=== PATIENT | male | born 1970 | race Caucasian/White ===

== ENCOUNTER 2019-08-19 00:24 | Day surgery (SDC) | payer OTHER, SELFPAY ==
[2019-08-04 11:03] VITALS: BMI 35.6
[2019-08-19 06:22] VITALS: BP 150/89; PULSE 79; RESP 20; TEMP 36.7; O2SAT 98
[2019-08-19] MEDS: LACTATED RINGERS 1,000 ML 30 ML IV CONT (06:55)
--- NOTE | 2019-08-19 07:04 | WPDANESEPPF ---
Anes - Initial Pre Proc Eval Procedure: Operation Date: 08/19/19 07:30 Proposed Procedures p Biopsy Lesion of Maxilla - Chavez Barajas DMD Date/Time: 08/19/19 07:04 Surgeon: Chavez Barajas DMD Pre Op Diagnosis: Lesion of maxilla Patient Data Age: 49 Gender: M Height: 6 ft 1 in Weight: 122.47 kg Allergies Allergy/AdvReac Type Severity Reaction Status Date / Time No Known Allergies Allergy Mild Unverified 08/19/19 06:26 Home Medications Medication Instructions Recorded Confirmed Type Ageless Male 1 tablet PO DAILY 08/04/19 History amlodipine 5 mg PO DAILY 08/04/19 08/19/19 History hydrocodone-acetaminophen 1 tablet PO TID PRN 08/04/19 08/19/19 History losartan 100 mg PO DAILY 08/04/19 08/19/19 History methylphenidate HCl 10 mg PO BID 08/04/19 08/19/19 History multivitamin 1 tablet PO DAILY 08/04/19 08/19/19 History chlorzoxazone 500 mg TID 08/19/19 08/19/19 History Patient hx anesthesia problems: none Family hx anesthesia problems: none PMFSH Past Medical History Medical History Chronic pain syndrome Hypertension Smoker Tobacco abuse Anes - Eval Final PreProcedure Day of Procedure 08/19/19 07:04 Patient weight: obese Heart: regular rate and rhythm Lungs: decreased breath sounds Airway: Mallampati scale class II Neurological: alert and oriented Last oral intake: >/= 8 hours ASA classification: III Emergent: no Anesthetic plan: proceed Anesthesia type and monitoring: general ETT and standard monitoring Informed Consent: The patient's anesthetic plan and its attendant risks and benefits were discussed with the patient/family/POA. Questions were solicited and answers provided to the satisfaction of the patient/family/POA.
--- NOTE | 2019-08-19 07:20 | PM.IMHP ---
H&P: HPI History of Present Illness Chief complaint: Lesion of maxilla Narrative: Tony Manjarrez Sr. is a 49 year old male presents for removal of teeth and biopsy maxilla PMFSH Past Medical History Medical History Chronic pain syndrome Hypertension Smoker Tobacco abuse Meds Home Medications and Allergies Home Medications Medication Instructions Recorded Confirmed Type Ageless Male 1 tablet PO DAILY 08/04/19 History amlodipine 5 mg PO DAILY 08/04/19 08/19/19 History hydrocodone-acetaminophen 1 tablet PO TID PRN 08/04/19 08/19/19 History losartan 100 mg PO DAILY 08/04/19 08/19/19 History methylphenidate HCl 10 mg PO BID 08/04/19 08/19/19 History multivitamin 1 tablet PO DAILY 08/04/19 08/19/19 History chlorzoxazone 500 mg TID 08/19/19 08/19/19 History Allergies Allergy/AdvReac Type Severity Reaction Status Date / Time No Known Allergies Allergy Mild Unverified 08/19/19 06:26 Assessment and Plan Additional Plan removal of #8-10 and biopsy maxilla
[2019-08-19] MEDS: OXYMETAZOLINE HCL 0.05% NAS 15 ML BTL (*BKC) 1 SPRAY NASAL (07:45)
[2019-08-19] MEDS: LIDOCAINE 2%-EPI (FOR DENTAL BLOCK) 1.7 ML CARTRIDGE INFILTRATE (07:46)
[2019-08-19 08:13] VITALS: BP 137/89; PULSE 91; RESP 12; TEMP 36.2; O2SAT 95
[2019-08-19 08:25] VITALS: BP 150/99; PULSE 80; RESP 16; O2SAT 99
--- NOTE | 2019-08-19 08:28 | PM.PROC ---
Procedure Note - Detailed Date of procedure: 08/19/19 Pre-op diagnosis: Lesion of maxilla Post-op diagnosis: same Procedure performed: removal #8,9,10 and enucleation of lesion maxilla Description of procedure: Patient was encountered in the operating room under care of the Anesthesia Service to induced a general anesthetic. Oral cavity was suctioned free of debris and throat pack was placed. Patient was draped in the usual manner for an intraoral surgical procedure. Local anesthetic was administered. A 15 blade was used to make a circular incision in the anterior maxilla with a distal releasing incision in the area of tooth 12. Full-thickness flap was elevated to the buccal. Teeth numbers 8 9 and 10 were found to be involved in the lesion and tooth 8. Was fractured. These teeth were removed using elevator and forceps technique without complication. The lesion was enucleated from the maxilla and sent for specimen. The wound was thoroughly irrigated. The bony cavity was packed with Gelfoam and then closed using 4.0 chromic gut suture in interrupted fashion. Oral cavity was suctioned free of debris and throat pack was removed. Ghost gauze packs were placed. Care the patient was returned to the Anesthesia Service to extubate the patient transferred to recovery in stable condition. Anesthesia: GLMA Surgeon: Chavez Barajas DMD Windows Laptop Technician: klaus Estimated blood loss (mL): 20 Drains: No Packing: Yes Pathology: yes Complications: No immediate complications Condition: stable Disposition: same day Findings: no unusual findings
[2019-08-19 08:40] VITALS: BP 142/105; PULSE 82; RESP 16; O2SAT 97
--- NOTE | 2019-08-19 08:41 | SUR.PHASEI ---
0840; DR RAMIRES NOTIFIED OF PT'S BP 142/105. NO ORDERS RECEIVED. PT ASKING TO GO HOME
[2019-08-19 08:45] VITALS: BP 153/88; PULSE 88; RESP 14
[2019-08-19 09:15] VITALS: BP 143/86; PULSE 74; RESP 14
== END 2019-08-19 09:37 | disposition home or self-care (01) ==
PROVIDERS: PCP Family Medicine; Visit Provider Dentist
PROC: (CPT 20240; principal; 2019-08-19 07:30)
DX: M27.40 Unspecified cyst of jaw (principal); K03.81 Cracked tooth; I10 Essential (primary) hypertension; G89.4 Chronic pain syndrome; E66.9 Obesity, unspecified; Z68.34 Body mass index [BMI] 34.0-34.9, adult
CPT/HCPCS: 41899 ×3; 21030; A9270; J0330; J1100; J2001; J2250; J2405; J2704; J3010; J7120